=== PATIENT | male | born 1960 | race Hispanic/Latino ===

== ENCOUNTER → 2024-11-19 | Day surgery (SDC) | payer OTHER ==
[~2024-11-19] MED LIST: CENTRUM ADULTS1 EAC1; GEMFIBROZIL600 MG PO; GLUCOSAMINE &1 EACH; LIDOCAINE HCL 2% LOCAL INJ 5 ML SDV VIAL INJ ONE; LOSARTAN POTAS100 MG PO; PROPOFOL IV EMULSION 10 MG/ML 20 ML VIAL ONE; TYLENOL ARTHRITIS; VITAMIN D350 MCG
[2024-11-19] MEDS: LACTATED RINGER'S 1,000 ML ONE (08:14)
[2024-11-19 10:02] VITALS: TEMP 97.6
[2024-11-19 10:25] VITALS: BP 114/86; PULSE 60; RESP 18; O2SAT 99
== END | disposition home or self-care (01) ==
LOC: OR 07:44
PROVIDERS: ATTEND Internal Medicine Gastroenterology
DX: Z12.11 Encounter for screening for malignant neoplasm of colon (principal); D12.2 Benign neoplasm of ascending colon; K29.70 Gastritis, unspecified, without bleeding; K31.89 Other diseases of stomach and duodenum; K21.9 Gastro-esophageal reflux disease without esophagitis; K44.9 Diaphragmatic hernia without obstruction or gangrene; K57.30 Diverticulosis of large intestine without perforation or abscess without bleeding; K64.8 Other hemorrhoids; I10 Essential (primary) hypertension; E78.5 Hyperlipidemia, unspecified; Z01.810 Encounter for preprocedural cardiovascular examination; Z79.1 Long term (current) use of non-steroidal anti-inflammatories (NSAID); Z79.899 Other long term (current) drug therapy
CPT/HCPCS: 43239; 45384; 93005; J2003; J2704; J7121; 45385